=== PATIENT | male | born 1950 | race Caucasian/White ===

== ENCOUNTER 2018-09-16 17:12 | Inpatient (IN) ==
[2018-09-16] MEDS ORDERED: Sod Chloride 0.9% Inj 1,000 ML IV.SIG SCH (18:45)
--- NOTE | 2018-09-16 18:48 | ED ---
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 Patient states that 2 days ago when he went to his CT surgery follow-up appointment with Dr. Ashley his blood pressure was noted to be lower around 100/ 60 in the office. States that his heart rate was normal at this time. States that because his blood pressure was noted to be low he self discontinued his diltiazem for the past 2 days as well as his metoprolol. States that this morning when he saw his oncologist he was advised to take the metoprolol so he did take 1/2 tablet of his metoprolol today. He has continued his amiodarone. States that when he went to his oncologist office this morning his heart rate was noted to be in the 140s. States that he called his director of instruction Dr. Torres's office and was advised to come to the emergency department. The patient states he has been feeling generalized weakness over the last 3 weeks. States that over the past 3 days he said cold symptoms with runny nose, nasal congestion and assumed that he caught a cold from his who was sick recently as well. States that he had a temperature of 100.4 F last night. States he has not had any nausea or vomiting in the last week. Denies diarrhea , constipation, black or bloody stool, abdominal pain, chest pain, shortness of breath, lightheadedness, dizziness, swelling of the extremities. Related Data Home Medications Medication Instructions Recorded Confirmed aspirin [Aspirin Low Dose] 81 mg PO DAILY 08/04/18 09/16/18 amiodarone 200 mg PO DAILY 09/07/18 09/16/18 promethazine 25 mg PO Q8H PRN 09/07/18 09/16/18 Previous Rx's Medication Instructions Recorded diltiazem HCl [Cardizem CD] 180 mg PO DAILY #30 cap 08/12/18 hydrocodone-acetaminophen 1 tab PO Q4H PRN #40 tab 08/12/18 metoprolol tartrate 50 mg PO BID #180 tab 08/13/18 diphenoxylate-atropine [Lomotil] 1 tab PO Q8H PRN #20 tab 09/07/18 metoclopramide HCl [Reglan] 10 mg PO Q6H PRN #20 tab 09/07/18 Allergies Allergy/AdvReac Type Severity Reaction Status Date / Time psyllium [From Metamucil] Allergy Severe Rash Verified 09/16/18 17:20 Review of Systems ROS: all other systems reviewed are negative [facility] Medical History Medical History Hypertension (Acute) Lung cancer (Acute) Rectal cancer (Acute) Wears contact lenses (Acute) Surgical History Surgical History History of abdominal aortic aneurysm repair (Acute) History of bronchoscopy (Acute) Hx of CABG (Acute) Social History Social History Substance History: No History of Abuse Second Hand Smoke Exposure: No Smoking Status: Former smoker Tobacco Type: Cigarettes How Often Do You Have a Drink Containing Alcohol: Monthly or less Recent Travel in [facility] within the Last 8 Weeks: No Recent Out of Country Travel within the Last 8 Weeks: No Immunization History Tetanus Immunization: <5 Years Exam Narrative Exam Narrative: GENERAL: Well-nourished and well-developed pleasant patient in no acute distress who is nontoxic appearing. SKIN: Warm and dry without any obvious rashes or lesions. HEAD: Normocephalic and atraumatic. EYES: No injection, drainage, or hyphema noted. PERRLA. EOMI. ENT: No nasal drainage noted. Oropharynx is clear and the TMs are normal with good landmarks. NECK: Supple and the trachea is midline. CARDIOVASCULAR: Regular rate and rhythm. RESPIRATORY: Breath sounds are equal bilaterally with no accessory muscle use, wheezing, rhonchi, or crackles. GASTROINTESTINAL: Abdomen is soft, non-tender, and nondistended. No hepatosplenomegaly. MUSCULOSKELETAL: No obvious deformities, swelling, cyanosis, or ecchymosis is present throughout the upper and lower extremities. Patient has full range of motion without any signs of neurovascular compromise. Distal pulses are 2+ throughout. NEUROLOGICAL: Awake, alert, and oriented. Normal speech and gait. Cranial nerves are grossly intact. Course Initial Documented Vital Signs Temperature 97.9 F 09/16/18 17:15 Pulse Rate 146 H 09/16/18 17:15 Respiratory Rate 18 09/16/18 17:15 Blood Pressure 106/59 L 09/16/18 17:15 Pulse Oximetry 99 09/16/18 17:15 Last Documented Vital Signs Temperature 98.6 F 09/17/18 08:00 Pulse Rate 108 H 09/17/18 08:00 Respiratory Rate 16 09/17/18 08:00 Blood Pressure 101/63 09/17/18 08:00 Pulse Oximetry 98 09/17/18 08:00 Medical Decision Making LENY Attestation LENY supervised visit: Yes Attestation: I, Dr. Lockhart, have reviewed the advance practice practitioner's documentation and am in agreement, met with the patient face to face, made the diagnosis, and the medical decision making was done by me. *My assessment and Findings: Patient is a 68 year old male who comes in due to rapid heart rate. He denies any chest pain, SOB, dizziness. He has not been taking his Metoprolol or Diltiazam for 2 days. Exam shows rapid, irregular heart rate. Given 15 mg Cardizem with slight improvement of rate. Given additional 10 mg Cardizem with improvement of his rate into the 80s/90s. MDM Narrative Medical decision making narrative: 68-year-old male presents to the emergency department for evaluation of tachycardia and low blood pressure. Patient is afebrile. Patient's heart rate is tachycardic at 139 bpm. Patient's blood pressure is low at 96/66. Otherwise vital signs within normal limits. IV access is obtained, labs have been drawn and sent. Patient is placed on cardiac telemetry and pulse oximetry monitoring. EKG shows atrial fibrillation with ventricular rate of 136 bpm, no acute ST elevations or depressions, nonspecific ST changes, reviewed by my attending physician Dr. Lockhart. Patient administered diltiazem 15 mg IV bolus with 1 L IV fluid. Patient given a second bolus of 10 mg IV diltiazem and heart rate has come down to 99 bpm, blood pressure 103/61. CBC shows mild anemia with hemoglobin 10.6 hematocrit 31.3. Coags are unremarkable. CMP is unremarkable. Troponin is less than 0.02. BNP is 294. Chest x-ray shows minimal residual airspace disease in the right lung base presumably atelectasis. Influenza swab is negative. Patient's heart rate has risen back to the 130s despite 2 boluses of diltiazem. Patient is placed on a Cardizem drip. He will be admitted for atrial fibrillation with RVR. I spoke with Dr. [place] [facility] who accepts for admission. Medical Screen Exam Complete: Yes Emergency Medical Condition: Yes Differential Diagnosis Differential Diagnosis: Atrial fibrillation versus atrial tachycardia versus dehydration versus electrolyte abnormality versus anemia versus influenza versus pneumonia Lab Data Result diagrams: 09/17/18 06:46 09/17/18 06:46 Lab Results 09/16/18 09/16/18 09/16/18 Range/Units 18:30 18:30 18:30 WBC 7.6 (4.0-11.0) th/mm3 RBC 3.14 L (4.50-5.90) mil/mm3 Hgb 10.6 L (13.0-17.0) gm/dL Hct 31.3 L (39.0-51.0) % MCV 99.6 (80.0-100.0) fL MCH 33.8 (27.0-34.0) pg MCHC 33.9 (32.0-36.0) % RDW 21.6 H (11.6-17.2) % Plt Count 331 (150-450) th/mm3 MPV 7.4 (7.0-11.0) fL Neut % (Auto) 76.0 H (16.0-70.0) % Lymph % (Auto) 4.6 L (9.0-44.0) % Ceiba % (Auto) 15.0 H (0.0-8.0) % Eos % (Auto) 3.7 (0.0-4.0) % Baso % (Auto) 0.7 (0.0-2.0) % Neut # (Auto) 5.8 (1.8-7.7) th/mm3 Lymph # (Auto) 0.3 L (1.0-4.8) th/mm3 Ceiba # (Auto) 1.1 H (0.0-0.9) th/mm3 Eos # (Auto) 0.3 (0.0-0.4) th/mm3 Baso # (Auto) 0.1 (0.0-0.2) th/mm3 WBC Differential . Differential Comment Auto diff final PT (9.8-11.6) sec INR Ratio APTT (23.4-31.7) sec Sodium 140 (136-145) meq/L Potassium 3.5 (3.5-5.1) meq/L Chloride 103 (98-107) meq/L Carbon Dioxide 27.6 (21.0-32.0) meq/L Anion Gap 9 (5-15) meq/L BUN 11 (7-18) mg/dL Creatinine 0.75 (0.60-1.30) mg/dL Estimated GFR Greater than 89 (>89) mL/min Random Glucose 101 (74-106) mg/dL Lactic Acid (0.4-2.0) mmol/L Calcium 8.3 L (8.5-10.1) mg/dL Total Bilirubin 0.3 (0.2-1.0) mg/dL AST 20 (15-37) U/L ALT 28 (12-78) U/L Alkaline Phosphatase 58 (45-117) U/L Troponin I Less than 0.02 L (0.02-0.05) ng/mL B-Natriuretic Peptide 294 H (0-100) pg/mL Total Protein 6.4 (6.4-8.2) g/dL Albumin 2.6 L (3.4-5.0) g/dL Urine Color (Yellw/Straw) Urine Clarity (Clear) Urine pH (5.0-8.5) Ur Specific [place] (1.002-1.035) Urine Protein (Neg-Trace) mg/dL Urine Glucose (UA) (Negative) mg/dL Urine Ketones (Negative) mg/dL Urine Occult Blood (Negative) Urine Nitrate (Negative) Urine Bilirubin (Negative) Urine Urobilinogen (Less than 2) mg/dL Ur Leukocyte Esterase (Negative) Urine WBC (0-5) /hpf Ur Squamous Epith Cells (0-5) /hpf Urine Bacteria (None) /hpf Micro UA Comment Ur Microscopic Review Urine Culture Comments 09/16/18 09/16/18 09/16/18 Range/Units 18:30 20:06 22:55 WBC (4.0-11.0) th/mm3 RBC (4.50-5.90) mil/mm3 Hgb (13.0-17.0) gm/dL Hct (39.0-51.0) % MCV (80.0-100.0) fL MCH (27.0-34.0) pg MCHC (32.0-36.0) % RDW (11.6-17.2) % Plt Count (150-450) th/mm3 MPV (7.0-11.0) fL Neut % (Auto) (16.0-70.0) % Lymph % (Auto) (9.0-44.0) % Ceiba % (Auto) (0.0-8.0) % Eos % (Auto) (0.0-4.0) % Baso % (Auto) (0.0-2.0) % Neut # (Auto) (1.8-7.7) th/mm3 Lymph # (Auto) (1.0-4.8) th/mm3 Ceiba # (Auto) (0.0-0.9) th/mm3 Eos # (Auto) (0.0-0.4) th/mm3 Baso # (Auto) (0.0-0.2) th/mm3 WBC Differential Differential Comment PT 10.9 (9.8-11.6) sec INR 1.1 Ratio APTT 29.3 (23.4-31.7) sec Sodium (136-145) meq/L Potassium (3.5-5.1) meq/L Chloride (98-107) meq/L Carbon Dioxide (21.0-32.0) meq/L Anion Gap (5-15) meq/L BUN (7-18) mg/dL Creatinine (0.60-1.30) mg/dL Estimated GFR (>89) mL/min Random Glucose (74-106) mg/dL Lactic Acid 0.8 (0.4-2.0) mmol/L Calcium (8.5-10.1) mg/dL Total Bilirubin (0.2-1.0) mg/dL AST (15-37) U/L ALT (12-78) U/L Alkaline Phosphatase (45-117) U/L Troponin I (0.02-0.05) ng/mL B-Natriuretic Peptide (0-100) pg/mL Total Protein (6.4-8.2) g/dL Albumin (3.4-5.0) g/dL Urine Color Straw (Yellw/Straw) Urine Clarity Hazy H (Clear) Urine pH 6.0 (5.0-8.5) Ur Specific [place] 1.005 (1.002-1.035) Urine Protein Negative (Neg-Trace) mg/dL Urine Glucose (UA) Negative (Negative) mg/dL Urine Ketones Negative (Negative) mg/dL Urine Occult Blood Negative (Negative) Urine Nitrate Negative (Negative) Urine Bilirubin Negative (Negative) Urine Urobilinogen Less than 2 (Less than 2) mg/dL Ur Leukocyte Esterase Negative (Negative) Urine WBC 1 (0-5) /hpf Ur Squamous Epith Cells 7 (0-5) /hpf Urine Bacteria Few H (None) /hpf Micro UA Comment Culture not ind Ur Microscopic Review Not Reportable Urine Culture Comments Culture not ind 09/17/18 09/17/18 09/17/18 Range/Units 00:55 06:46 06:46 WBC 7.4 (4.0-11.0) th/mm3 RBC 2.93 L (4.50-5.90) mil/mm3 Hgb 9.9 L (13.0-17.0) gm/dL Hct 29.2 L (39.0-51.0) % MCV 99.5 (80.0-100.0) fL MCH 33.7 (27.0-34.0) pg MCHC 33.9 (32.0-36.0) % RDW 21.7 H (11.6-17.2) % Plt Count 306 (150-450) th/mm3 MPV 7.5 (7.0-11.0) fL Neut % (Auto) 75.4 H (16.0-70.0) % Lymph % (Auto) 4.7 L (9.0-44.0) % Ceiba % (Auto) 14.7 H (0.0-8.0) % Eos % (Auto) 4.6 H (0.0-4.0) % Baso % (Auto) 0.6 (0.0-2.0) % Neut # (Auto) 5.6 (1.8-7.7) th/mm3 Lymph # (Auto) 0.3 L (1.0-4.8) th/mm3 Ceiba # (Auto) 1.1 H (0.0-0.9) th/mm3 Eos # (Auto) 0.3 (0.0-0.4) th/mm3 Baso # (Auto) 0.0 (0.0-0.2) th/mm3 WBC Differential . Differential Comment Auto diff final PT (9.8-11.6) sec INR Ratio APTT (23.4-31.7) sec Sodium 141 (136-145) meq/L Potassium 3.0 L (3.5-5.1) meq/L Chloride 106 (98-107) meq/L Carbon Dioxide 27.0 (21.0-32.0) meq/L Anion Gap 8 (5-15) meq/L BUN 6 L (7-18) mg/dL Creatinine 0.61 (0.60-1.30) mg/dL Estimated GFR Greater than 89 (>89) mL/min Random Glucose 82 (74-106) mg/dL Lactic Acid (0.4-2.0) mmol/L Calcium 8.0 L (8.5-10.1) mg/dL Total Bilirubin 0.4 (0.2-1.0) mg/dL AST 14 L (15-37) U/L ALT 24 (12-78) U/L Alkaline Phosphatase 49 (45-117) U/L Troponin I 0.03 0.02 (0.02-0.05) ng/mL B-Natriuretic Peptide (0-100) pg/mL Total Protein 5.7 L D (6.4-8.2) g/dL Albumin 2.3 L (3.4-5.0) g/dL Urine Color (Yellw/Straw) Urine Clarity (Clear) Urine pH (5.0-8.5) Ur Specific [place] (1.002-1.035) Urine Protein (Neg-Trace) mg/dL Urine Glucose (UA) (Negative) mg/dL Urine Ketones (Negative) mg/dL Urine Occult Blood (Negative) Urine Nitrate (Negative) Urine Bilirubin (Negative) Urine Urobilinogen (Less than 2) mg/dL Ur Leukocyte Esterase (Negative) Urine WBC (0-5) /hpf Ur Squamous Epith Cells (0-5) /hpf Urine Bacteria (None) /hpf Micro UA Comment Ur Microscopic Review Urine Culture Comments Imaging Data Radiologist's impression: Chest X-Ray 09/16/18 18:39 CONCLUSION: 1. Minimal residual airspace disease in the right lung base, presumably atelectasis. Discharge Plan Discharge Disposition Patient Disposition: ED Admit(ED Internal Use Only) Discharge Condition Condition: Stable Discharge Order Discharge Orders: ED Use Only Admit Order (Routine); Ordered 09/16/18 Ordered By: Iveth Manning Discharge Details Diagnosis: Atrial fibrillation with RVR Physicians Team ED Provider: Sarah Lockhart ED Midlevel Provider: Iveth Manning Primary Care Provider: Primary Care Maya Al Attending Provider: Valarie Carrion Other Providers: Dajuan Torres Status ED Status: Left Department Discharge Information Discharge Date/Time: 09/17/18 02:03
[2018-09-16 19:11] LABS: Baso # (Auto) 0.1 th/mm3 (0.0-0.2); Baso % (Auto) 0.7 % (0.0-2.0); Eos # (Auto) 0.3 th/mm3 (0.0-0.4); Eos % (Auto) 3.7 % (0.0-4.0); Hematocrit 31.3 % (39.0-51.0); Hemoglobin 10.6 gm/dL (13.0-17.0); Lymph # (Auto) 0.3 th/mm3 (1.0-4.8); Lymph % (Auto) 4.6 % (9.0-44.0); Mean Corpuscular HGB Conc 33.9 % (32.0-36.0); Mean Corpuscular Hemoglobin 33.8 pg (27.0-34.0); Mean Corpuscular Volume 99.6 fL (80.0-100.0); Mean Platelet Volume 7.4 fL (7.0-11.0); Mono # (Auto) 1.1 th/mm3 (0.0-0.9); Neut # (Auto) 5.8 th/mm3 (1.8-7.7); Platelet Count 331 th/mm3 (150-450); Red Blood Count 3.14 mil/mm3 (4.50-5.90); Red Cell Distribution Width 21.6 % (11.6-17.2); White Blood Count 7.6 th/mm3 (4.0-11.0)
[2018-09-16 19:23] LABS: Activated Partial Thrombo Time 29.3 sec (23.4-31.7); INR 1.1 Ratio; Prothrombin Time 10.9 sec (9.8-11.6)
[2018-09-16 19:29] LABS: Albumin 2.6 g/dL (3.4-5.0); Anion Gap 9 meq/L (5-15); Aspartate Aminotransferase 20 U/L (15-37); Blood Urea Nitrogen 11 mg/dL (7-18); Calcium 8.3 mg/dL (8.5-10.1); Carbon Dioxide 27.6 meq/L (21.0-32.0); Chloride 103 meq/L (98-107); Glomerular Filtration Rate Greater Than 89 mL/min (>89); Glucose,Random 101 mg/dL (74-106); Potassium 3.5 meq/L (3.5-5.1); Sodium 140 meq/L (136-145)
[2018-09-16 19:30] LABS: Alanine Aminotransferase 28 U/L (12-78)
[2018-09-16 19:33] LABS: Alkaline Phosphatase 58 U/L (45-117); Total Protein 6.4 g/dL (6.4-8.2)
--- NOTE | 2018-09-16 19:46 | XR ---
EXAM DATE: 09/16/2018 7:42 PM EST AGE/SEX: 68 years / Male INDICATIONS: Patient presents with increased heart rate with extensive cardiac history. CLINICAL DATA: This is the patient's initial encounter. Patient reports that signs and symptoms have been present for 1 day and indicates a pain score of 4/10. MEDICAL/SURGICAL HISTORY: Cardiovascular disease. . aortic valve;CABG; COMPARISON: [facility], CHEST 1V SINGLE AP, 08/12/2018. . FINDINGS: Improved aeration throughout the right mid to lower lung zones with minimal residual airspace disease at the right lung base.. No significant pneumothorax. Cardiomediastinal contours are within normal l imits. Remainder of the exam is unchanged. CONCLUSION: 1. Minimal residual airspace disease in the right lung base, presumably atelectasis. Electronically signed by: Vincent Ellis MD Board Certified Radiologist 09/16/2018 7:45 PM EST
[2018-09-16] MEDS: dilTIAZem Inj 125 MG in Sodium Chlor 0.9% Inj 100 ML IV.CONT PRN (21:14)
[2018-09-16] MEDS ORDERED: Morphine Sulfate Inj 2 MG/ML Vial IV.PUSH PRN (21:41)
[2018-09-16] MEDS ORDERED: Bisacodyl 10 MG Supp RECTAL PRN (21:41)
[2018-09-16] MEDS ORDERED: Acetaminophen 325 MG Tablet PO PRN (21:41)
--- NOTE | 2018-09-16 21:43 | P.HPIM ---
History of Present Illness Primary Care Physician: No Primary Care Physician History of Present Illness: This is a 68-year-old male with a PMH of HTN, Rectal CA w/ Mets to Liver/Lung s/p Thoracotomy and CAD s/p CABG who was referred to the ER by Dr. Torres for eval of tachycardia and hypotension. Pt reports h/o Thoracotomy [address]mo [address] Ashley, was seen in office for follow up few days ago and noted to have low BP 100/60 and discontinued Cardizem and Metoprolol x2 days, seen in office today by Dr. Hinkle and noted to have HR 140's, called Dr. Torres's office and instructed to come to the ER for further evaluation. Pt denies chest pain. Does note recent nasal congestion/ runny nose w/ low-grade temp at home x3 days. On arrival, noted to be in A-fib w/ RVR, HR 140's, BP 106/59, O2 sat 99% on RA, Afebrile. S/p Cardizem IV x2 doses in ER w/ improvement, however recurrent episode of A-fib w/ RVR, currently on Cardizem gtt. CBC at baseline. INR 1.1. Chemistry unremarkable. Troponin negative. UA pending. CXR with atelectasis. Diagnosis (1) Atrial fibrillation with RVR: (2) Rectal cancer: (3) Hypotension: Inpatient Certification Inpatient Certification: I certify that the inpatient services were ordered in accordance with Medicare regulations governing the order. This includes certification that hospital inpatient services are reasonable and necessary and in the case of services not specified as inpatient-only under 42 CFR 419.22(n), that they are appropriately provided as inpatient services in accordance to with the 2-midnight benchmark under 43 CFR 412.3(e) Estimated Total Length of Stay (Days): 2 Plans for Post Hospital Care: Not yet determined Review of Systems PAST FAMILY HISTORY: Reviewed. No h/o DM or CAD Review of Systems: all other systems reviewed are negative [facility] Medical History Medical History Hypertension (Acute) Lung cancer (Acute) Rectal cancer (Acute) Wears contact lenses (Acute) Surgical History Surgical History History of abdominal aortic aneurysm repair (Acute) History of bronchoscopy (Acute) Hx of CABG (Acute) Social History Social History Second Hand Smoke Exposure: No Smoking Status: Former smoker Tobacco Type: Cigarettes How Often Do You Have a Drink Containing Alcohol: Monthly or less Recent Travel in [place] within the Last 8 Weeks: No Recent Out of Country Travel within the Last 8 Weeks: No Immunization History Tetanus Immunization: <5 Years Medications and Allergies Allergies Allergy/AdvReac Type Severity Reaction Status Date / Time psyllium [From Metamucil] Allergy Severe Rash Verified 09/16/18 17:20 Home Medications Medication Instructions Recorded Confirmed Type aspirin [Aspirin Low Dose] 81 mg PO DAILY 08/04/18 09/16/18 History amiodarone 200 mg PO DAILY 09/07/18 09/16/18 History promethazine 25 mg PO Q8H PRN 09/07/18 09/16/18 History Active Medications: Active Medications Diltiazem HCl 125 mg/ Sodium (Chloride) 125 mls @ 5 mls/hr IV.CONT TITRATE PRN ; Protocol PRN Reason: Per Protocol Last Admin: 09/16/18 21:14 Dose: 5 mg/hr, 5 mls/hr Sodium Chloride (Ns Flush) 2 ml IV.FLUSH UNSCH PRN PRN Reason: FLUSH AFTER USING IV ACCESS Physical Exam Vital signs: Vital Signs 09/16/18 17:15 09/16/18 18:30 09/16/18 18:46 Temperature 97.9 F Pulse Rate 146 H 139 H Respiratory Rate 18 17 Blood Pressure 106/59 L 96/66 L Pulse Oximetry 99 98 96 09/16/18 18:48 09/16/18 20:30 09/16/18 21:13 Temperature 98.9 F Pulse Rate 99 H 118 H 144 H Respiratory Rate 17 20 20 Blood Pressure 103/61 106/57 L 94/60 L Pulse Oximetry 100 98 98 Intake & Output 09/16/18 09/16/18 09/17/18 06:59 18:59 06:59 Intake Total 1000 / 1000 Balance 1000 / 1000 Weight 77.111 kg Intake: IV 1000 / 1000 NS Inj 1,000 ML @ 1000 mls/hr 1000 / 1000 IV.SIG BOLUS [facility] Rx#:[id number] Narrative: PE: GENERAL: Very pleasant middle-aged white male in no acute distress. SKIN: Focused skin assessment warm and dry. HEENT: PERRLA, EOMI. No scleral icterus or conjunctival pallor. No lid lag or facial droop. CARDIOVASCULAR: Irregularly irregular, in A. fib, HR 110-120's. No obvious murmurs to auscultation. No chest tenderness to palpation. RESPIRATORY: No obvious rhonchi or wheezing. Clear to auscultation. Breath sounds equal bilaterally. GASTROINTESTINAL: Abdomen soft, non-tender, nondistended. BS normal. MUSCULOSKELETAL: Extremities without clubbing, cyanosis, or edema. No obvious deformities. NEUROLOGICAL: Awake, alert and oriented x4. No focal neurologic deficits. Moving both upper and lower extremities spontaneously. PSYCHIATRIC: Appropriate mood and affect. Insight and judgment normal. Results Labs CBC & Chem 7: 09/16/18 18:30 09/16/18 18:30 Imaging Impressions Chest X-Ray 09/16/18 18:39 CONCLUSION: 1. Minimal residual airspace disease in the right lung base, presumably atelectasis. Caprini VTE Risk Assessment Caprini VTE Risk Assessment: No/Low Risk (score <= 1) Caprini Risk Assessment Model: Point Value = 1 Point Value = 2 Point Value = 3 Point Value = 5 Age 41-60 Minor surgery BMI > 25 kg/m2 Swollen legs Varicose veins or History of unexplained or recurrent spontaneous Oral contraceptives or hormone replacement Sepsis (< 1 month) Serious lung disease, including pneumonia (< 1 month) Abnormal pulmonary function Acute myocardial infarction Congestive heart failure (< 1 month) History of inflammatory bowel disease Medical patient at bed rest Age 61-74 Arthroscopic surgery Major open surgery (> 45 min) Laparoscopic surgery (> 45 min) Malignancy Confined to bed (> 72 hours) Immobilizing plaster cast Central venous access Age >= 75 History of VTE Family history of VTE Factor V Leiden Prothrombin [id number] Lupus anticoagulant Anticardiolipin antibodies Elevated serum homocysteine Heparin-induced thrombocytopenia Other congenital or acquired thrombophilia Stroke (< 1 month) Elective arthroplasty Hip, pelvis, or leg fracture Acute spinal cord injury (< 1 month) Prophylaxis Regimen: Total Risk Factor Score Risk Level Prophylaxis Regimen 0-1 Low Early ambulation 2 Moderate Order ONE of the following: *Sequential Compression Device (SCD) *Heparin 5000 units SQ BID 3-4 Higher Order ONE of the following medications: *Heparin 5000 units SQ TID *Enoxaparin/Lovenox 40 mg SQ daily (WT < 150 kg, CrCl > 30 mL/min) *Enoxaparin/Lovenox 30 mg SQ daily (WT < 150 kg, CrCl > 10-29 mL/min) *Enoxaparin/Lovenox 30 mg SQ BID (WT < 150 kg, CrCl > 30 mL/min) AND/OR *Sequential Compression Device (SCD) 5 or more Highest Order ONE of the following medications: *Heparin 5000 units SQ TID (Preferred with Epidurals) *Enoxaparin/Lovenox 40 mg SQ daily (WT < 150 kg, CrCl > 30 mL/min) *Enoxaparin/Lovenox 30 mg SQ daily (WT < 150 kg, CrCl > 10-29 mL/min) *Enoxaparin/Lovenox 30 mg SQ BID (WT < 150 kg, CrCl > 30 mL/min) AND *Sequential Compression Device (SCD) Assessment and Plan (1) Atrial fibrillation with RVR: Code(s): I48.91 - Unspecified atrial fibrillation Status: Acute (2) Rectal cancer: Code(s): C20 - Malignant neoplasm of rectum Status: Acute (3) Hypotension: Code(s): I95.9 - Hypotension, unspecified Status: Acute Plan A/P: 1. A-fib w/ RVR: h/o Atrial Tachycardia after Thoracotomy, has been on Amiodarone, Cardizem and Metoprolol, however episodes of hypotension and has been off Cardizem and Metoprolol x2 days, now w/ RVR, HR 140's on arrival. Cardizem IV x2 doses given in ER w/ transient improvement, now recurrent RVR, currently on Cardizem gtt, caution w/ hypotension-will monitor closely. Consult Dr. Torres for further evaluation. 2. Hypotension: BP 100's while in ER, monitor BP closely while on Cardizem, IVF for hydration, hold BP meds for now. 3. Rectal CA: w/ Mets to Liver/Lung, following w/ Dr. Hinkle, recent thoracotomy for lung mass 4. DVT Prophylaxis: SCD/Teds 5. Social work for d/c planning as needed. 6. Case discussed w/ ER physician at length, labs/records/imaging reviewed by me.
--- NOTE | 2018-09-16 22:34 | ECG ---
Date Performed: 09/16/2018 Time Performed: 17:27:34 PTAGE: 68 years EKG: ATRIAL FLUTTER WITH RAPID VENTRICULAR RESPONSE ST DEVIATION AND MODERATE T-WAVE ABNORMALITY ABNORMAL ECG PREVIOUS TRACING : 08/10/2018 09.17 Compared to previous tracing, SR no longer present DOCTOR: Román Armstrong Interpretating Date/Time 09/16/2018 22:32:56
[2018-09-16] MEDS: Sod Chloride 0.9% Inj 1,000 ML IV.CONT SCH (23:29)
[2018-09-16 23:30] LABS: Bacteria,Urine Few /hpf; Bilirubin,Urine Negative (Negative); Clarity,Urine Hazy (Clear); Color,Urine Straw (Yellw/Straw); Glucose,Urine (UA) Negative (Negative); Leukocyte Esterase,Urine Negative (Negative); Nitrite,Urine Negative (Negative); Specific Gravity,Urine 1.005 (1.002-1.035); Squamous Epithelial Cell,Urine 7 /hpf (0-5)
[2018-09-17 08:32] LABS: Baso % (Auto) 0.6 % (0.0-2.0); Eos # (Auto) 0.3 th/mm3 (0.0-0.4); Eos % (Auto) 4.6 % (0.0-4.0); Hematocrit 29.2 % (39.0-51.0); Hemoglobin 9.9 gm/dL (13.0-17.0); Lymph # (Auto) 0.3 th/mm3 (1.0-4.8); Lymph % (Auto) 4.7 % (9.0-44.0); Mean Corpuscular HGB Conc 33.9 % (32.0-36.0); Mean Corpuscular Hemoglobin 33.7 pg (27.0-34.0); Mean Corpuscular Volume 99.5 fL (80.0-100.0); Mean Platelet Volume 7.5 fL (7.0-11.0); Mono # (Auto) 1.1 th/mm3 (0.0-0.9); Mono % (Auto) 14.7 % (0.0-8.0); Neut # (Auto) 5.6 th/mm3 (1.8-7.7); Neut % (Auto) 75.4 % (16.0-70.0); Platelet Count 306 th/mm3 (150-450); Red Blood Count 2.93 mil/mm3 (4.50-5.90); Red Cell Distribution Width 21.7 % (11.6-17.2); White Blood Count 7.4 th/mm3 (4.0-11.0)
[2018-09-17 08:52] LABS: Albumin 2.3 g/dL (3.4-5.0); Anion Gap 8 meq/L (5-15); Aspartate Aminotransferase 14 U/L (15-37); Blood Urea Nitrogen 6 mg/dL (7-18); Chloride 106 meq/L (98-107); Glomerular Filtration Rate Greater Than 89 mL/min (>89); Glucose,Random 82 mg/dL (74-106); Sodium 141 meq/L (136-145)
[2018-09-17 08:53] LABS: Alanine Aminotransferase 24 U/L (12-78)
[2018-09-17 08:57] LABS: Alkaline Phosphatase 49 U/L (45-117); Total Protein 5.7 g/dL (6.4-8.2); Troponin I 0.02 ng/mL (0.02-0.05)
[2018-09-17] MEDS: Metoprolol Tartrate 50 MG Tablet PO SCH ×2 (09:00→21:09)
[2018-09-17] MEDS: dilTIAZem Inj 125 MG in Sodium Chlor 0.9% Inj 100 ML IV.CONT PRN (09:13)
[2018-09-17] MEDS: Sod Chloride 0.9% Inj 1,000 ML IV.CONT SCH ×2 (09:13→21:10)
[2018-09-17] MEDS: dilTIAZem CD 180 MG Capsule PO SCH (09:14)
[2018-09-17] MEDS: Senna/Docusate Sodium 8.6/50 MG Tablet PO SCH ×3 (09:15→21:08)
[2018-09-17] MEDS ORDERED: Digoxin Inj 500 MCG/2 ML Ampul IV.PUSH ONE ×3 (10:00→22:00)
--- NOTE | 2018-09-17 10:00 | MB ---
cc: Dajuan Torres MD DATE: 09/17/2018 REASON FOR CONSULTATION: Rapid atrial fibrillation. HISTORY OF PRESENT ILLNESS: The patient is a very pleasant 68-year-old gentleman known to me who has a history of hypertension and metastatic rectal cancer who presented with hypotension and rapid atrial fibrillation. Apparently, the patient's blood pressure was low, so at home they were holding the metoprolol. The patient presented in rapid atrial fibrillation and was started on a Cardizem drip and had reasonable heart rates; however, his blood pressures remained somewhat low at about 100 systolic. The patient feels tired and has not slept well since being in the hospital, but denies any specific symptoms such as chest pain, shortness of breath, lightheadedness, dizziness. PAST MEDICAL HISTORY: Atrial fibrillation, on amiodarone, metoprolol, and diltiazem. (I do not see that he is on anticoagulation, I believe this was held due to his metastatic cancer, but we will have to review my office chart when I have it available.) MEDICAL HISTORY: Coronary artery disease, status post coronary artery bypass grafting. CURRENT MEDICATIONS: 1. Aspirin 81 mg daily. 2. Diltiazem 180 mg daily. 3. Lopressor 50 mg b.i.d. ALLERGIES: PSYLLIUM. PHYSICAL EXAMINATION: VITAL SIGNS: Afebrile, pulse 108, respiratory rate 16, BP 101/63, saturating 98 on room air. GENERAL: Pleasant gentleman in no distress. NECK: No JVD. LUNGS: Clear to auscultation bilaterally. CARDIOVASCULAR: Mildly rapid and irregularly irregular rhythm. No significant murmurs appreciated. ABDOMEN: Benign. EXTREMITIES: No edema. LABORATORY DATA: White count 7.4, hematocrit 29.2, platelets 306. INR is 1.1. Sodium 141, potassium 3.0, down from 3.5, chloride 106, bicarbonate 27, BUN 6, creatinine 0.61, glucose 82. Troponins are negative. EKG showed rapid atrial flutter with diffuse nonspecific ST changes. Current telemetry shows a borderline rate control of his atrial flutter between 90 and the low 100s. ASSESSMENT AND PLAN: Atrial flutter. The patient has somewhat difficult atrial flutter. Given his low heart rates, I will add digoxin and try to get him off the Cardizem drip. We may have to consider ablation at some point, though would prefer him on anticoagulation if this is feasible from an oncologic standpoint. Hopefully, we can rate control and discharge him home soon. Thank you again for the opportunity to participate in this patient's care. MD MIO Osorio/milagros , 09:34 AM , 09:40 AM
--- NOTE | 2018-09-17 11:07 | ECHRPT ---
Indication: Atrial Fib and Flutter CONCLUSIONS Normal left ventricular size. Mild concentric left ventricular hypertrophy. The left ventricular systolic function is normal with an estimated ejection fraction in the range of 55-60%. Mild mitral valve regurgitation. Mitral annular calcification is present. Aortic valve sclerosis is present. There is trace tricuspid valve regurgitation. The estimated pulmonary arterial pressure is 39 mmHg. BP: / HR: Rhythm: MEASUREMENTS (Male / Female) Normal Values Technical Quality:Fair 2D ECHO LV Diastolic Diameter PLAX 4.9 cm 4.2 - 5.9 / 3.9 - 5.3 cm LV Systolic Diameter PLAX 3.5 cm IVS Diastolic Thickness 1.1 cm 0.6 - 1.0 / 0.6 - 0.9 cm LVPW Diastolic Thickness 1.1 cm 0.6 - 1.0 / 0.6 - 0.9 cm LV Relative Wall Thickness 0.5 RV Internal Dim ED PLAX 2.6 cm LVOT Diameter 2.2 cm Aortic Root Diameter 3.5 cm LA Systolic Diameter LX 3.5 cm 3.0 - 4.0 / 2.7 - 3.8 cm M-MODE AV Cusp Separation MM 2.2 cm DOPPLER Mitral E Point Velocity 106.0 cm/s Mitral A Point Velocity 54.3 cm/s Mitral E to A Ratio 2.0 LV E' Lateral Velocity 10.3 cm/s Mitral E to LV E' Lateral Ratio 10.3 LV E' Septal Velocity 10.9 cm/s Mitral E to LV E' Septal Ratio 9.7 TR Peak Velocity 270.0 cm/s TR Peak Gradient 29.2 mmHg Right Atrial Pressure 10.0 mmHg Pulmonary Artery Systolic Pressu 39.2 mmHg Right Ventricular Systolic Press 39.2 mmHg PV Peak Velocity 93.7 cm/s PV Peak Gradient 3.5 mmHg FINDINGS LEFT VENTRICLE Normal left ventricular size. Mild concentric left ventricular hypertrophy. The left ventricular systolic function is normal with an estimated ejection fraction in the range of 55-60%. RIGHT VENTRICLE Normal right ventricular size and systolic function. LEFT ATRIUM The left atrial size is normal. RIGHT ATRIUM The right atrial size is normal. ATRIAL SEPTUM Normal atrial septal thickness without atrial level shunting by limited color doppler interrogation. AORTA The aortic root and proximal ascending aorta are normal in size on limited imaging. MITRAL VALVE Mild mitral valve regurgitation. Mitral annular calcification is present. AORTIC VALVE Trileaflet aortic valve. Aortic valve sclerosis is present. TRICUSPID VALVE There is trace tricuspid valve regurgitation. The estimated pulmonary arterial pressure is 39 mmHg. PULMONARY VALVE No pulmonary valve regurgitation or stenosis. VESSELS The inferior vena cava is normal in size. PERICARDIUM No pericardial effusion. Dajuan Torres MD (Electronically Signed) Final Date:17 September 2018 11:06
--- NOTE | 2018-09-17 16:12 | P.PNIM ---
Subjective Interval history: The patient is in bed appears pale and tired. He is however in not acute distress. Says he does not have any chest pain does not feel palpitations, no lightheadedness. There is no lower extremity edema. Blood pressure and is seen to the lower side and pulse is better controlled with a change of medications. Physical Exam Vital signs: Vital Signs 09/16/18 17:15 09/16/18 18:30 09/16/18 18:46 Temperature 97.9 F Pulse Rate 146 H 139 H Respiratory Rate 18 17 Blood Pressure 106/59 L 96/66 L Pulse Oximetry 99 98 96 09/16/18 18:48 09/16/18 20:30 09/16/18 21:13 Temperature 98.9 F Pulse Rate 99 H 118 H 144 H Respiratory Rate 17 20 20 Blood Pressure 103/61 106/57 L 94/60 L Pulse Oximetry 100 98 98 09/16/18 21:49 09/16/18 22:00 09/17/18 01:40 Temperature 98.8 F 99.6 F Pulse Rate 119 H 110 H 109 H Respiratory Rate 14 20 18 Blood Pressure 103/59 L 108/65 101/67 Pulse Oximetry 98 98 98 09/17/18 01:50 09/17/18 02:00 09/17/18 03:00 Temperature Pulse Rate 104 H 104 H 115 H Respiratory Rate Blood Pressure Pulse Oximetry 09/17/18 03:51 09/17/18 04:00 09/17/18 05:00 Temperature Pulse Rate 108 H 96 H 118 H Respiratory Rate 18 Blood Pressure 104/72 Pulse Oximetry 95 09/17/18 06:00 09/17/18 07:00 09/17/18 08:00 Temperature 98.6 F Pulse Rate 99 H 102 H 100 H Respiratory Rate 16 Blood Pressure 101/63 Pulse Oximetry 98 09/17/18 09:00 09/17/18 10:00 09/17/18 10:39 Temperature Pulse Rate 106 H 78 85 Respiratory Rate 16 Blood Pressure 95/57 L Pulse Oximetry 100 09/17/18 11:00 09/17/18 12:00 09/17/18 13:00 Temperature 98.1 F Pulse Rate 75 76 72 Respiratory Rate 16 Blood Pressure 100/59 L Pulse Oximetry 99 09/17/18 14:00 Temperature Pulse Rate 75 Respiratory Rate Blood Pressure Pulse Oximetry Intake & Output 09/16/18 09/17/18 09/17/18 18:59 06:59 18:59 Intake Total 1240 / 1240 1125 / 1125 Output Total 600 / 600 Balance 640 / 640 1125 / 1125 Weight 77.111 kg 78.7 kg Intake: IV 1000 / 1000 1125 / 1125 NS Inj 1,000 ML @ 100 mls/hr IV 1000 / 1000 .CONT .Q10H [facility] Rx#:[id number] Cardizem Inj 125 MG In NS Inj 125 / 125 100 ML @ 5 MG/HR 5 mls/hr IV. CONT TITRATE PRN Rx#:[id number] NS Inj 1,000 ML @ 1000 mls/hr 1000 / 1000 IV.SIG BOLUS [facility] Rx#:[id number] Oral 240 / 240 Output: Urine 600 / 600 Other: Date of Last Bowel Movement 09/17/18 Weight On Admission 77.1 kg Narrative: GENERAL: Pleasant 68-year-old male, well-nourished well-developed, appears in not acute distress SKIN: Pale. Focused skin assessment warm and dry. HEENT: PERRLA, EOMI. No scleral icterus or conjunctival pallor. No lid lag or facial droop. CARDIOVASCULAR: Irregularly irregular. No murmurs. RESPIRATORY: No accessory muscle use. No rhonchi or wheezing. Clear to auscultation. Breath sounds equal bilaterally. GASTROINTESTINAL: Abdomen soft, non-tender, nondistended. BS normal. MUSCULOSKELETAL: Extremities without clubbing, cyanosis, or edema. No obvious deformities. NEUROLOGICAL: Awake, alert and oriented x4. No focal neurologic deficits. Moving both upper and lower extremities spontaneously. PSYCHIATRIC: Appropriate mood and affect. Insight and judgment normal. Results Labs CBC & Chem 7: 09/17/18 06:46 09/17/18 06:46 Labs: Microbiology 09/16/18 20:04 Blood - Peripheral Aerobic Blood Culture - Preliminary No growth in 1 day 09/16/18 20:04 Blood - Peripheral Anaerobic Blood Culture - Preliminary No growth in 1 day 09/16/18 20:06 Blood - Peripheral Aerobic Blood Culture - Preliminary No growth in 1 day 09/16/18 20:06 Blood - Peripheral Anaerobic Blood Culture - Preliminary No growth in 1 day 09/16/18 20:00 Nasal Wash Influenza Types A,B Antigen - Final Negative for FLU A and B antigen Infection due to influenza A or B cannot be ruled out since the antigen present in the sample may be below the detection limit of the test. Imaging Imaging: Impressions Chest X-Ray 09/16/18 18:39 CONCLUSION: 1. Minimal residual airspace disease in the right lung base, presumably atelectasis. Assessment and Plan (1) Atrial fibrillation with RVR: Code(s): I48.91 - Unspecified atrial fibrillation Status: Acute (2) Rectal cancer: Code(s): C20 - Malignant neoplasm of rectum Status: Acute (3) Hypotension: Code(s): I95.9 - Hypotension, unspecified Status: Acute Plan A-fib w/ RVR: h/o Atrial Tachycardia after Thoracotomy, has been on Amiodarone , Cardizem and Metoprolol, however episodes of hypotension and has been off Cardizem and Metoprolol x2 days, now w/ RVR, HR 140's on arrival. Cardizem IV x2 doses given in ER w/ transient improvement, now recurrent RVR, currently on Cardizem gtt, caution w/ hypotension-will monitor closely. Consult Dr. Torres for further evaluation. Patient is noted with low blood pressure started digoxin. Wean off Cardizem drip. Heart rate better controlled. 2D echo reviewed normal ejection fraction 55% Hypotension: BP 100's while in ER, monitor BP closely while on Cardizem, IVF for hydration, hold BP meds for now. Rectal CA: w/ Mets to Liver/Lung, following w/ Dr. Hinkle, recent thoracotomy for lung mass DVT Prophylaxis: SCD/Teds CM for d/c planning as needed. Case discussed with the patient, family at bedside, nurse Progress Note: Quality VTE Deep Vein Thrombosis/Pulmonary Embolism Present on Admission: No
--- NOTE | 2018-09-17 18:28 | ECG ---
Date Performed: 09/17/2018 Time Performed: 00:58:27 PTAGE: 68 years EKG: ATRIAL FLUTTER WITH RAPID VENTRICULAR RESPONSE ST DEVIATION AND MODERATE T-WAVE ABNORMALITY ABNORMAL ECG PREVIOUS TRACING : 09/16/2018 17.27 Since the previous tracing, no significant change noted DOCTOR: Román Armstrong Interpretating Date/Time 09/17/2018 18:26:00
[2018-09-18] MEDS: Senna/Docusate Sodium 8.6/50 MG Tablet PO SCH ×2 (08:21→20:13)
[2018-09-18] MEDS: Digoxin 125 MCG Tablet PO SCH (08:21)
[2018-09-18] MEDS: dilTIAZem CD 180 MG Capsule PO SCH (08:21)
--- NOTE | 2018-09-18 10:41 | P.PNCA ---
Subjective Interval history: Pt feeling tired, rates a bit better, off ggt, but still rapid during ambulation , low bps have prevented some po med administration Medications and Allergies Active Medications: Active Medications Acetaminophen (Tylenol) 650 mg PO Q4H PRN PRN Reason: Temp > 100.4 Al Hydroxide/Mg Hydroxide (Milk Of Magnesia Liq) 30 ml PO Q12H PRN PRN Reason: Mild Constipation Aspirin (Ecotrin) 81 mg PO DAILY [facility] Last Admin: 09/18/18 08:21 Dose: 81 mg Bisacodyl (Dulcolax Supp) 10 mg RECTAL DAILY PRN PRN Reason: SEVERE CONSITIPATION Digoxin (Lanoxin) 125 mcg PO DAILY [facility] Last Admin: 09/18/18 08:21 Dose: 125 mcg Diltiazem HCl (Cardizem Cd 24hr) 180 mg PO DAILY [facility] Last Admin: 09/18/18 08:21 Dose: 180 mg Diltiazem HCl 125 mg/ Sodium (Chloride) 125 mls @ 5 mls/hr IV.CONT TITRATE PRN ; Protocol PRN Reason: Per Protocol Last Titration: 09/17/18 10:30 Dose: 0 mg/hr, 0 mls/hr Sodium Chloride (Ns Inj) 1,000 mls @ 100 mls/hr IV.CONT .Q10H [facility] Last Admin: 09/17/18 21:10 Dose: Not Given Lactulose (Lactulose Liq) 30 ml PO DAILY PRN PRN Reason: SEVERE CONSITIPATION Metoprolol Tartrate (Lopressor) 50 mg PO BID [facility] Last Admin: 09/17/18 21:09 Dose: 50 mg Morphine Sulfate (Morphine Inj) 2 mg IV.PUSH Q4H PRN PRN Reason: PAIN SCALE 6 TO 10 Ondansetron HCl (Zofran Inj) 4 mg IV.PUSH Q6H PRN PRN Reason: NAUSEA OR VOMITING Senna/Docusate Sodium (Catrina-Colace) 1 tab PO BID [facility] Last Admin: 09/18/18 08:21 Dose: Not Given Sennosides (Senokot) 17.2 mg PO Q12H PRN PRN Reason: Moderate Constipation Sodium Chloride (Ns Flush) 2 ml IV.FLUSH BID [facility] Last Admin: 09/18/18 08:21 Dose: Not Given Sodium Chloride (Ns Flush) 2 ml IV.FLUSH PRN PRN PRN Reason: FLUSH AFTER USING IV ACCESS Last Admin: 09/17/18 21:10 Dose: 2 ml Allergies Allergy/AdvReac Type Severity Reaction Status Date / Time psyllium [From Metamucil] Allergy Severe Rash Verified 09/16/18 17:20 Home Medications Medication Instructions Recorded Confirmed Type aspirin [Aspirin Low Dose] 81 mg PO DAILY 08/04/18 09/16/18 History amiodarone 200 mg PO DAILY 09/07/18 09/16/18 History promethazine 25 mg PO Q8H PRN 09/07/18 09/16/18 History Physical Exam Vital signs: Vital Signs 09/17/18 10:39 09/17/18 11:00 09/17/18 12:00 Temperature 98.1 F Pulse Rate 85 75 76 Respiratory Rate 16 16 Blood Pressure 95/57 L 100/59 L Pulse Oximetry 100 99 09/17/18 13:00 09/17/18 14:00 09/17/18 15:00 Temperature Pulse Rate 72 75 76 Respiratory Rate Blood Pressure Pulse Oximetry 09/17/18 16:00 09/17/18 17:00 09/17/18 18:00 Temperature 98.2 F Pulse Rate 74 76 76 Respiratory Rate 16 Blood Pressure 108/65 Pulse Oximetry 97 09/17/18 19:00 09/17/18 20:00 09/17/18 21:00 Temperature 97.9 F Pulse Rate 75 79 77 Respiratory Rate 20 Blood Pressure 129/80 Pulse Oximetry 98 09/17/18 22:00 09/17/18 23:00 09/18/18 00:00 Temperature 98.2 F Pulse Rate 80 82 79 Respiratory Rate 20 Blood Pressure 94/54 L Pulse Oximetry 98 09/18/18 01:00 09/18/18 02:00 09/18/18 03:00 Temperature Pulse Rate 88 88 88 Respiratory Rate Blood Pressure Pulse Oximetry 09/18/18 04:00 09/18/18 05:00 09/18/18 05:55 Temperature 98.4 F Pulse Rate 84 89 92 H Respiratory Rate 18 Blood Pressure 95/59 L Pulse Oximetry 97 09/18/18 07:00 09/18/18 08:00 09/18/18 08:20 Temperature 98.2 F Pulse Rate 90 83 Respiratory Rate 16 Blood Pressure 127/83 107/71 Pulse Oximetry 98 09/18/18 09:00 09/18/18 10:00 Temperature Pulse Rate 94 H 138 H Respiratory Rate Blood Pressure Pulse Oximetry Intake & Output 09/17/18 09/18/18 09/18/18 18:59 06:59 18:59 Intake Total 2024 / 2024 480 / 480 Output Total 460 / 460 650 / 650 Balance 1565 / 1565 -170 / -170 Weight 78.5 kg Intake: IV 1125 / 1125 NS Inj 1,000 ML @ 100 mls/hr IV 1000 / 1000 .CONT .Q10H [facility] Rx#:[id number] Cardizem Inj 125 MG In NS Inj 125 / 125 100 ML @ 5 MG/HR 5 mls/hr IV. CONT TITRATE PRN Rx#:[id number] Oral 900 / 900 480 / 480 Output: Urine 460 / 460 650 / 650 Other: # Voids 2 Date of Last Bowel Movement 09/17/18 09/17/18 # Bowel Movements 1 1 - Constitutional no acute distress - Routine HEENT Exam Head: Present: normocephalic Eye: Present: EOMI ENT: Present: mucous membranes moist - Routine Neck Exam Present: supple. Absent: JVD - Routine Respiratory Exam Absent: accessory muscle use - Routine Cardiovascular Exam Present: tachycardia, irregularly irregular - Routine Abdominal Exam Present: soft - Routine Extremities Exam Absent: edema Results 09/17/18 06:46 09/17/18 06:46 Cardiac Enzymes 09/16/18 09/16/18 09/17/18 Range/Units 18:30 18:30 00:55 AST 20 (15-37) U/L Troponin I Less than 0.02 L 0.03 (0.02-0.05) ng/mL B-Natriuretic Peptide 294 H (0-100) pg/mL 09/17/18 Range/Units 06:46 AST 14 L (15-37) U/L Troponin I 0.02 (0.02-0.05) ng/mL B-Natriuretic Peptide (0-100) pg/mL Coagulation 09/16/18 09/16/18 Range/Units 18:30 18:30 PT 10.9 (9.8-11.6) sec APTT 29.3 (23.4-31.7) sec B-Natriuretic Peptide 294 H (0-100) pg/mL CBC 09/16/18 09/17/18 Range/Units 18:30 06:46 WBC 7.6 7.4 (4.0-11.0) th/mm3 RBC 3.14 L 2.93 L (4.50-5.90) mil/mm3 Hgb 10.6 L 9.9 L (13.0-17.0) gm/dL Hct 31.3 L 29.2 L (39.0-51.0) % Plt Count 331 306 (150-450) th/mm3 Neut # (Auto) 5.8 5.6 (1.8-7.7) th/mm3 Lymph # (Auto) 0.3 L 0.3 L (1.0-4.8) th/mm3 [place] # (Auto) 1.1 H 1.1 H (0.0-0.9) th/mm3 Eos # (Auto) 0.3 0.3 (0.0-0.4) th/mm3 Baso # (Auto) 0.1 0.0 (0.0-0.2) th/mm3 Comprehensive Metabolic Panel 09/16/18 09/17/18 Range/Units 18:30 06:46 Sodium 140 141 (136-145) meq/L Potassium 3.5 3.0 L (3.5-5.1) meq/L Chloride 103 106 (98-107) meq/L Carbon Dioxide 27.6 27.0 (21.0-32.0) meq/L BUN 11 6 L (7-18) mg/dL Creatinine 0.75 0.61 (0.60-1.30) mg/dL Calcium 8.3 L 8.0 L (8.5-10.1) mg/dL AST 20 14 L (15-37) U/L ALT 28 24 (12-78) U/L Alkaline Phosphatase 58 49 (45-117) U/L Total Protein 6.4 5.7 L D (6.4-8.2) g/dL Albumin 2.6 L 2.3 L (3.4-5.0) g/dL Intake and Output 09/17/18 09/18/18 09/18/18 22:59 06:59 14:59 Intake Total 900 / 900 480 / 480 Output Total 460 / 460 650 / 650 Balance 440 / 440 -170 / -170 Intake: Oral 900 / 900 480 / 480 Output: Urine 460 / 460 650 / 650 Other: # Voids 2 Date of Last Bowel Movement 09/17/18 09/17/18 # Bowel Movements 1 1 Weight 78.5 kg - Imaging and Cardiology Imaging: Impressions Chest X-Ray 09/16/18 18:39 CONCLUSION: 1. Minimal residual airspace disease in the right lung base, presumably atelectasis. Assessment and Plan - Assessment (1) Atrial fibrillation with RVR Code(s): I48.91 - Unspecified atrial fibrillation Status: Acute Plan: Raymond's vas score basically only 1 for age, no significant htn (actually low here ), given metastatic cancer will hold off on anticoagulation for now but will consider particularly if he needs ablation. Rates improved, he will try to take additional fluids, if rates good tomorrow he might be able to go home
[2018-09-18] MEDS: Metoprolol Tartrate 50 MG Tablet PO SCH ×2 (11:19→20:13)
[2018-09-18] MEDS: Sod Chloride 0.9% Inj 1,000 ML IV.CONT SCH ×2 (11:28→16:17)
--- NOTE | 2018-09-18 17:35 | P.PNIM ---
Subjective Interval history: The patient is in bed he feels very tired. Heart rate is elevated especially with movement. Physical therapy recommends PT at home. The patient denies any chest pain. Some shortness of breath however he is saturating well on room air. Physical Exam Vital signs: Vital Signs 09/17/18 18:00 09/17/18 19:00 09/17/18 20:00 Temperature 97.9 F Pulse Rate 76 75 79 Respiratory Rate 20 Blood Pressure 129/80 Pulse Oximetry 98 09/17/18 21:00 09/17/18 22:00 09/17/18 23:00 Temperature Pulse Rate 77 80 82 Respiratory Rate Blood Pressure Pulse Oximetry 09/18/18 00:00 09/18/18 01:00 09/18/18 02:00 Temperature 98.2 F Pulse Rate 79 88 88 Respiratory Rate 20 Blood Pressure 94/54 L Pulse Oximetry 98 09/18/18 03:00 09/18/18 04:00 09/18/18 05:00 Temperature 98.4 F Pulse Rate 88 84 89 Respiratory Rate 18 Blood Pressure 95/59 L Pulse Oximetry 97 09/18/18 05:55 09/18/18 07:00 09/18/18 08:00 Temperature 98.2 F Pulse Rate 92 H 90 83 Respiratory Rate 16 Blood Pressure 127/83 Pulse Oximetry 98 09/18/18 08:20 09/18/18 09:00 09/18/18 10:00 Temperature Pulse Rate 94 H 138 H Respiratory Rate Blood Pressure 107/71 Pulse Oximetry 09/18/18 11:00 09/18/18 12:00 09/18/18 13:00 Temperature 97.2 F L Pulse Rate 87 96 H 63 Respiratory Rate 16 Blood Pressure 118/72 Pulse Oximetry 100 09/18/18 14:00 09/18/18 15:00 09/18/18 15:45 Temperature Pulse Rate 70 75 Respiratory Rate Blood Pressure Pulse Oximetry 100 09/18/18 16:00 09/18/18 17:00 Temperature 98.2 F Pulse Rate 82 75 Respiratory Rate 16 Blood Pressure 120/73 Pulse Oximetry 100 Intake & Output 09/17/18 09/18/18 09/18/18 18:59 06:59 18:59 Intake Total 2024 / 2024 1480 / 1480 1540 / 1540 Output Total 460 / 460 650 / 650 1100 / 1100 Balance 1565 / 1565 830 / 830 440 / 440 Weight 78.5 kg Intake: IV 1125 / 1125 1000 / 1000 NS Inj 1,000 ML @ 100 mls/hr IV 1000 / 1000 1000 / 1000 .CONT .Q10H [facility] Rx#:[id number] Cardizem Inj 125 MG In NS Inj 125 / 125 100 ML @ 5 MG/HR 5 mls/hr IV. CONT TITRATE PRN Rx#:[id number] Oral 900 / 900 480 / 480 1540 / 1540 Output: Urine 460 / 460 650 / 650 1100 / 1100 Other: # Voids 2 Date of Last Bowel Movement 09/17/18 09/18/18 # Bowel Movements 1 1 Narrative: GENERAL: Pleasant 68-year-old male, well-nourished well-developed, appears in not acute distress SKIN: Pale. Focused skin assessment warm and dry. CARDIOVASCULAR: Irregularly irregular. No murmurs. RESPIRATORY: No accessory muscle use. No rhonchi or wheezing. Clear to auscultation. Breath sounds equal bilaterally. GASTROINTESTINAL: Abdomen soft, non-tender, nondistended. BS normal. MUSCULOSKELETAL: Extremities without clubbing, cyanosis, or edema. No obvious deformities. NEUROLOGICAL: Awake, alert and oriented x4. No focal neurologic deficits. Moving both upper and lower extremities spontaneously. PSYCHIATRIC: Appropriate mood and affect. Insight and judgment normal. Results Labs CBC & Chem 7: 09/17/18 06:46 09/17/18 06:46 Labs: Microbiology 09/16/18 20:04 Blood - Peripheral Aerobic Blood Culture - Preliminary No growth in 2 days 09/16/18 20:04 Blood - Peripheral Anaerobic Blood Culture - Preliminary No growth in 2 days 09/16/18 20:06 Blood - Peripheral Aerobic Blood Culture - Preliminary No growth in 2 days 09/16/18 20:06 Blood - Peripheral Anaerobic Blood Culture - Preliminary No growth in 2 days Assessment and Plan (1) Atrial fibrillation with RVR: Code(s): I48.91 - Unspecified atrial fibrillation Status: Acute Plan A-fib w/ RVR: h/o Atrial Tachycardia after Thoracotomy, has been on Amiodarone , Cardizem and Metoprolol, however episodes of hypotension and has been off Cardizem and Metoprolol x2 days, now w/ RVR, HR 140's on arrival. Cardizem IV x2 doses given in ER w/ transient improvement, now recurrent RVR, currently on Cardizem gtt, caution w/ hypotension-will monitor closely. Consult Dr. Torres for further evaluation. Patient is noted with low blood pressure started digoxin. Wean off Cardizem drip. Heart rate better controlled. 2D echo reviewed normal ejection fraction 55% Hypotension: BP 100's while in ER, monitor BP closely while on Cardizem, IVF for hydration, hold BP meds for now. Rectal CA: w/ Mets to Liver/Lung, following w/ Dr. Hinkle, recent thoracotomy for lung mass DVT Prophylaxis: SCD/Teds CM for d/c planning as needed. Case discussed with the patient, family at bedside, nurse Progress Note: Quality VTE Deep Vein Thrombosis/Pulmonary Embolism Present on Admission: No
[2018-09-19] MEDS: Sod Chloride 0.9% Inj 1,000 ML IV.CONT SCH (06:55)
--- NOTE | 2018-09-19 08:18 | P.PNCA ---
Subjective Interval history: He is doing better, still higher rates when he ambulated, bp is higher. Medications and Allergies Active Medications: Active Medications Acetaminophen (Tylenol) 650 mg PO Q4H PRN PRN Reason: Temp > 100.4 Al Hydroxide/Mg Hydroxide (Milk Of Magnesia Liq) 30 ml PO Q12H PRN PRN Reason: Mild Constipation Aspirin (Ecotrin) 81 mg PO DAILY [facility] Last Admin: 09/18/18 08:21 Dose: 81 mg Bisacodyl (Dulcolax Supp) 10 mg RECTAL DAILY PRN PRN Reason: SEVERE CONSITIPATION Digoxin (Lanoxin) 125 mcg PO DAILY [facility] Last Admin: 09/18/18 08:21 Dose: 125 mcg Diltiazem HCl (Cardizem Cd 24hr) 180 mg PO DAILY [facility] Last Admin: 09/18/18 08:21 Dose: 180 mg Diltiazem HCl 125 mg/ Sodium (Chloride) 125 mls @ 5 mls/hr IV.CONT TITRATE PRN ; Protocol PRN Reason: Per Protocol Last Titration: 09/17/18 10:30 Dose: 0 mg/hr, 0 mls/hr Sodium Chloride (Ns Inj) 1,000 mls @ 100 mls/hr IV.CONT .Q10H [facility] Last Admin: 09/19/18 06:55 Dose: Not Given Lactulose (Lactulose Liq) 30 ml PO DAILY PRN PRN Reason: SEVERE CONSITIPATION Metoprolol Tartrate (Lopressor) 50 mg PO BID [facility] Last Admin: 09/18/18 20:13 Dose: 50 mg Morphine Sulfate (Morphine Inj) 2 mg IV.PUSH Q4H PRN PRN Reason: PAIN SCALE 6 TO 10 Ondansetron HCl (Zofran Inj) 4 mg IV.PUSH Q6H PRN PRN Reason: NAUSEA OR VOMITING Senna/Docusate Sodium (Catrina-Colace) 1 tab PO BID [facility] Last Admin: 09/18/18 20:13 Dose: 1 tab Sennosides (Senokot) 17.2 mg PO Q12H PRN PRN Reason: Moderate Constipation Sodium Chloride (Ns Flush) 2 ml IV.FLUSH BID [facility] Last Admin: 09/18/18 20:18 Dose: 2 ml Sodium Chloride (Ns Flush) 2 ml IV.FLUSH PRN PRN PRN Reason: FLUSH AFTER USING IV ACCESS Last Admin: 09/17/18 21:10 Dose: 2 ml Allergies Allergy/AdvReac Type Severity Reaction Status Date / Time psyllium [From Metamucil] Allergy Severe Rash Verified 09/16/18 17:20 Home Medications Medication Instructions Recorded Confirmed Type aspirin [Aspirin Low Dose] 81 mg PO DAILY 08/04/18 09/16/18 History amiodarone 200 mg PO DAILY 09/07/18 09/16/18 History promethazine 25 mg PO Q8H PRN 09/07/18 09/16/18 History Physical Exam Vital signs: Vital Signs 09/18/18 08:20 09/18/18 09:00 09/18/18 10:00 Temperature Pulse Rate 94 H 138 H Respiratory Rate Blood Pressure 107/71 Pulse Oximetry 09/18/18 11:00 09/18/18 12:00 09/18/18 13:00 Temperature 97.2 F L Pulse Rate 87 96 H 63 Respiratory Rate 16 Blood Pressure 118/72 Pulse Oximetry 100 09/18/18 14:00 09/18/18 15:00 09/18/18 15:45 Temperature Pulse Rate 70 75 Respiratory Rate Blood Pressure Pulse Oximetry 100 09/18/18 16:00 09/18/18 17:00 09/18/18 18:00 Temperature 98.2 F Pulse Rate 82 75 78 Respiratory Rate 16 Blood Pressure 120/73 Pulse Oximetry 100 09/18/18 19:00 09/18/18 20:00 09/18/18 21:00 Temperature 98.5 F Pulse Rate 82 88 85 Respiratory Rate 20 Blood Pressure 131/76 Pulse Oximetry 98 09/18/18 22:00 09/18/18 23:00 09/19/18 00:00 Temperature 98 F Pulse Rate 83 82 80 Respiratory Rate 18 Blood Pressure 123/71 Pulse Oximetry 97 09/19/18 01:00 09/19/18 02:00 09/19/18 03:00 Temperature Pulse Rate 77 78 80 Respiratory Rate Blood Pressure Pulse Oximetry 09/19/18 04:00 09/19/18 05:00 09/19/18 06:00 Temperature 98.2 F Pulse Rate 79 99 H 101 H Respiratory Rate 18 Blood Pressure 112/81 Pulse Oximetry 97 09/19/18 07:00 09/19/18 07:47 Temperature 98.1 F Pulse Rate 89 100 H Respiratory Rate 17 Blood Pressure 145/88 H Pulse Oximetry 99 Intake & Output 09/18/18 09/19/18 09/19/18 18:59 06:59 18:59 Intake Total 1540 / 1540 480 / 480 Output Total 1100 / 1100 1100 / 1100 Balance 440 / 440 -620 / -620 Weight 78.3 kg Intake: Oral 1540 / 1540 480 / 480 Output: Urine 1100 / 1100 1100 / 1100 Other: Date of Last Bowel Movement 09/18/18 09/18/18 09/18/18 # Bowel Movements 0 - Constitutional no acute distress - Routine HEENT Exam Head: Present: normocephalic, scalp tenderness ENT: Present: mucous membranes moist - Routine Neck Exam Absent: JVD - Routine Respiratory Exam Present: CTA bilaterally. Absent: accessory muscle use - Routine Cardiovascular Exam Present: irregular rhythm, irregularly irregular - Routine Abdominal Exam Present: soft - Routine Extremities Exam Absent: edema Results 09/17/18 06:46 09/17/18 06:46 Cardiac Enzymes 09/17/18 Range/Units 06:46 AST 14 L (15-37) U/L Troponin I 0.02 (0.02-0.05) ng/mL CBC 09/17/18 Range/Units 06:46 WBC 7.4 (4.0-11.0) th/mm3 RBC 2.93 L (4.50-5.90) mil/mm3 Hgb 9.9 L (13.0-17.0) gm/dL Hct 29.2 L (39.0-51.0) % Plt Count 306 (150-450) th/mm3 Neut # (Auto) 5.6 (1.8-7.7) th/mm3 Lymph # (Auto) 0.3 L (1.0-4.8) th/mm3 [place] # (Auto) 1.1 H (0.0-0.9) th/mm3 Eos # (Auto) 0.3 (0.0-0.4) th/mm3 Baso # (Auto) 0.0 (0.0-0.2) th/mm3 Comprehensive Metabolic Panel 09/17/18 Range/Units 06:46 Sodium 141 (136-145) meq/L Potassium 3.0 L (3.5-5.1) meq/L Chloride 106 (98-107) meq/L Carbon Dioxide 27.0 (21.0-32.0) meq/L BUN 6 L (7-18) mg/dL Creatinine 0.61 (0.60-1.30) mg/dL Calcium 8.0 L (8.5-10.1) mg/dL AST 14 L (15-37) U/L ALT 24 (12-78) U/L Alkaline Phosphatase 49 (45-117) U/L Total Protein 5.7 L D (6.4-8.2) g/dL Albumin 2.3 L (3.4-5.0) g/dL Intake and Output 09/18/18 09/19/18 09/19/18 22:59 06:59 14:59 Intake Total 1540 / 1540 480 / 480 Output Total 1100 / 1100 1100 / 1100 Balance 440 / 440 -620 / -620 Intake: Oral 1540 / 1540 480 / 480 Output: Urine 1100 / 1100 1100 / 1100 Other: Date of Last Bowel Movement 09/18/18 09/18/18 09/18/18 # Bowel Movements 0 Weight 78.3 kg Assessment and Plan - Assessment (1) Atrial fibrillation with RVR Code(s): I48.91 - Unspecified atrial fibrillation Status: Acute Plan: Rates doing better but still somewhat high, will increase his cardizem; he does have some htn today, so chadsvas now II, discussed at length, he is willing to try eliquis and understands, risks/benefits. If his rates better after am meds, ok to d/c home from cardiac standpoint.
[2018-09-19] MEDS ORDERED: dilTIAZem CD 180 MG Capsule PO SCH (08:19)
[2018-09-19] MEDS: Metoprolol Tartrate 50 MG Tablet PO SCH (08:55)
[2018-09-19] MEDS: Digoxin 125 MCG Tablet PO SCH (08:56)
[2018-09-19] MEDS ORDERED: dilTIAZem CD 240 MG Capsule PO SCH (09:15)
[2018-09-19] MEDS: Senna/Docusate Sodium 8.6/50 MG Tablet PO SCH (09:31)
--- NOTE | 2018-09-19 09:37 | P.DS ---
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 Torres for eval of tachycardia and hypotension. Pt reports h/o Thoracotomy [address]mo [address] Ashley, was seen in office for follow up few days ago and noted to have low BP 100/60 and discontinued Cardizem and Metoprolol x2 days, seen in office today by Dr. Hinkle and noted to have HR 140's, called Dr. Torres's office and instructed to come to the ER for further evaluation. Pt denies chest pain. Does note recent nasal congestion/ runny nose w/ low-grade temp at home x3 days. On arrival, noted to be in A-fib w/ RVR, HR 140's, BP 106/59, O2 sat 99% on RA, Afebrile. S/p Cardizem IV x2 doses in ER w/ improvement, however recurrent episode of A-fib w/ RVR, currently on Cardizem gtt. CBC at baseline. INR 1.1. Chemistry unremarkable. Troponin negative. UA pending. CXR with atelectasis. DS: Diagnosis Discharge Diagnosis (1) Atrial fibrillation with RVR: Status: Acute DS: Summary A-fib w/ RVR: h/o Atrial Tachycardia after Thoracotomy, has been on Amiodarone , Cardizem and Metoprolol, however episodes of hypotension and has been off Cardizem and Metoprolol x2 days, now w/ RVR, HR 140's on arrival. Cardizem IV x2 doses given in ER w/ transient improvement, now recurrent RVR, currently on Cardizem gtt, caution w/ hypotension-will monitor closely. Consult Dr. Torres for further evaluation. Patient is noted with low blood pressure started digoxin. Off Cardizem drip. Patient is also started on eliquis based on his CHADS VASC score. BP into a higher side, cardizem PO increased to 240 mg po daily patient is DC home in stable condition 2D echo reviewed normal ejection fraction 55% Hypotension: BP 100's while in ER, monitor BP closely while on Cardizem, IVF for hydration, hold BP meds for now. Rectal CA: w/ Mets to Liver/Lung, following w/ Dr. Hinkle, recent thoracotomy for lung mass Patient improved, cleared by cardiology for discharge. To follow-up as outpatient with PCP and consultants. Time Spent with Patient Total time spent providing and/or coordinating discharge services: > 30 min Quality: VTE Deep Vein Thrombosis/Pulmonary Embolism Present on Admission: No Exam Narrative Exam Narrative: GENERAL: Pleasant 68-year-old male, well-nourished well- developed, appears in not acute distress SKIN: Pale. Focused skin assessment warm and dry. CARDIOVASCULAR: Irregularly irregular. No murmurs. RESPIRATORY: No accessory muscle use. No rhonchi or wheezing. Clear to auscultation. Breath sounds equal bilaterally. GASTROINTESTINAL: Abdomen soft, non-tender, nondistended. BS normal. MUSCULOSKELETAL: Extremities without clubbing, cyanosis, or edema. No obvious deformities. NEUROLOGICAL: Awake, alert and oriented x4. No focal neurologic deficits. Moving both upper and lower extremities spontaneously. PSYCHIATRIC: Appropriate mood and affect. Insight and judgment normal. Results Labs on day of discharge: Preliminary micro results at discharge 09/16/18 20:04 Aerobic Blood Culture - Preliminary Blood - Peripheral No growth in 2 days Anaerobic Blood Culture - Preliminary No growth in 2 days 09/16/18 20:06 Aerobic Blood Culture - Preliminary Blood - Peripheral No growth in 2 days Anaerobic Blood Culture - Preliminary No growth in 2 days Impressions ITS Impressions Chest X-Ray 09/16/18 18:39 CONCLUSION: 1. Minimal residual airspace disease in the right lung base, presumably atelectasis. Discharge Plan Discharge Disposition Patient Disposition: 01 Discharge Home Discharge Condition Condition: Stable Discharge Order Discharge Orders: Discharge Order (Routine); Ordered 09/18/18 Ordered By: Valarie Carrion Discharge Details Anticipated Discharge Date: 09/18/18 Discharge Comment: DC when cleared by cardiology Dr Torres Physicians Team Primary Care Provider: Primary Care Maya Al Attending Provider: Valarie Carrion Other Providers: Dajuan Torres Rxs /Orders / Referrals /Forms Prescriptions: New digoxin 125 mcg Tablet 125 mcg PO DAILY Qty: 30 RF: 0 diltiazem HCl 240 mg Capsule,Extended Release 24hr 240 mg PO DAILY Qty: 30 RF: 0 apixaban [Eliquis] 5 mg Tablet 5 mg PO BID Qty: 180 RF: 0 Continue aspirin [Aspirin Low Dose] 81 mg Tablet,Delayed Release (Dr/Ec) 81 mg PO DAILY RF: 0 hydrocodone-acetaminophen 5-325 mg Tablet 1 tab PO Q4H PRN (Reason: Pain Scale 3 To 5) Qty: 40 RF: 0 metoprolol tartrate 50 mg Tablet 50 mg PO BID Qty: 180 RF: 0 promethazine 25 mg Tablet 25 mg PO Q8H PRN (Reason: Nausea) RF: 0 diphenoxylate-atropine [Lomotil] 2.5-0.025 mg tablet 1 tab PO Q8H PRN (Reason: diarrhea) Qty: 20 RF: 0 metoclopramide HCl [Reglan] 10 mg tablet 10 mg PO Q6H PRN (Reason: nausea and vomiting) Qty: 20 RF: 0 Discontinued diltiazem HCl [Cardizem CD] 180 mg Capsule,Extended Release 24hr 180 mg PO DAILY Qty: 30 RF: 2 amiodarone 200 mg tablet 200 mg PO DAILY RF: 0 Referrals: Dajuan Torres MD [Physician] - 09/29/18 4:00 pm (OFFICE STATED THAT THEY HAVE CHANGED THE APPT FOR September AND YOU NOW HAVE THIS APPOINTMENT ON 09/29/18 @4PM.) Primary Care Maya Al [Primary Care Provider] - See Instructions (Please call [facility] AT [phone] to book the appointment to be seen within [2-3 days].) Discharge Instructions Patient Printed Instructions: Apixaban (By mouth), A-fib (Atrial Fibrillation) (DC), Hypokalemia (DC), Fall Prevention (DC) Additional Instructions: Your Health Problems: Goals to Promote Your Health: * To prevent worsening of your condition * To maintain your health at the optimal level Directions to Meet Your Goals: * Take your medications as prescribed * Follow your dietary instruction * Follow activity as directed * Keep your appointments as scheduled * Take your immunizations and boosters as scheduled * If your symptoms worsen call your PCP * If no PCP go to Urgent Care or Emergency Room Smoking is dangerous to your health. Avoid second hand smoke. You may reach the 24-hour crisis hotline for domestic abuse at . Post Discharge Care Plan Care Plan Goals: Your Health Problems: Goals to Promote Your Health: * To prevent worsening of your condition * To maintain your health at the optimal level Directions to Meet Your Goals: * Take your medications as prescribed * Follow your dietary instruction * Follow activity as directed * Keep your appointments as scheduled * Take your immunizations and boosters as scheduled * If your symptoms worsen call your PCP * If no PCP go to Urgent Care or Emergency Room Smoking is dangerous to your health. Avoid second hand smoke. You may reach the 24-hour crisis hotline for domestic abuse at . Status ED Status: Left Department Discharge Information Discharge Date/Time: 09/19/18 15:33
== END 2018-09-19 15:33 | disposition home or self-care (01) | DRG 309 ==
LOC: NEPD 17:12 → NEDA 21:23 → HCIS 09-17 01:17
PROVIDERS: ADMIT Hospitalist; ATTEND Hospitalist
DX: I95.9 Hypotension, unspecified; C78.01 Secondary malignant neoplasm of right lung; J98.11 Atelectasis; C78.7 Secondary malignant neoplasm of liver and intrahepatic bile duct; I10 Essential (primary) hypertension; Z79.82 Long term (current) use of aspirin; Z79.899 Other long term (current) drug therapy; R91.8 Other nonspecific abnormal finding of lung field; C20 Malignant neoplasm of rectum; I25.10 Atherosclerotic heart disease of native coronary artery without angina pectoris; I48.92 Unspecified atrial flutter; R00.0 Tachycardia, unspecified; Z87.891 Personal history of nicotine dependence; I48.91 Unspecified atrial fibrillation; Z95.1 Presence of aortocoronary bypass graft
CPT/HCPCS: 71010; 71045; 80053; 81001; 82378; 83520; 83605; 83880; 84484; 85025; 85610; 85730; 87040; 87275; 87276; 87804; 90761; 90774; 90775; 90784; 93005; 93306; 96361; 96374; 96375; 99212; 99214; 99285; C8952; G0463; J1160; J7030